=== PATIENT | male | born 1990 | race Hispanic/Latino ===

== ENCOUNTER 2017-05-20 09:33 | Inpatient (IN) | payer BC ==
[2017-05-20] MEDS ORDERED: Sodium Chloride 0.9% 1,000 ML IV STA ×3 (11:18→15:38)
[2017-05-20 11:42] LABS: ALB/GLOB RATIO 1.4 (1.1-1.8); ALBUMIN 5.2 g/dL (3.0-4.8); ALT/SGPT 38 U/L (7-56); AMYLASE 65 U/L (35-125); AST/SGOT 26 U/L (15-59); BLOOD UREA NITROGEN 22 mg/dL (7-21); CALCIUM 10.2 mg/dL (8.4-10.5); GFR AFRICAN-AMERICAN > 60; GFR NON-AFRICAN AMERICAN > 60; HEMOGLOBIN 16.7 gm/dL (14.0-18.0); LIPASE 66 U/L (23-300); MEAN CELL VOLUME 87.2 fL (80.0-105.0); MEAN CORPUSCULAR HEMOGLOBIN 30.5 pg (25.0-35.0); PLATELET COUNT 202 10^3/uL (120.0-450.0); RBC 5.47 10^6/uL (3.5-6.1); RED CELL DISTRIBUTION WIDTH 12.5 % (11.5-14.5); WHITE BLOOD COUNT 14.6 10^3/ul (4.5-11.0)
[2017-05-20 11:42] LABS: PH,URINE 6.5 (4.7-8.0); URINE BILIRUBIN NEGATIVE (NEGATIVE); URINE BLOOD NEGATIVE (NEGATIVE); URINE GLUCOSE (UA) NEGATIVE (NEGATIVE); URINE LEUKOCYTE ESTERASE TRACE Leu/uL (NEGATIVE); URINE NITRATE NEGATIVE (NEGATIVE); URINE PROTEIN 30 mg/dL (<30 mg/dL); URINE UROBILINOGEN 0.2 E.U./dL (<1 E.U./dL)
[2017-05-20 11:47] LABS: INR 1.07 (0.93-1.08); PARTIAL THROMBOPLASTIN TIME 26.2 Seconds (23.7-30.8); PROTHROMBIN TIME 11.6 Seconds (9.9-11.8)
[2017-05-20] MEDS ORDERED: Famotidine 20mg/50ml 20 MG/50 ML BAG IVPB STA (11:47)
[2017-05-20 11:52] LABS: URINE APPEARANCE CLEAR (CLEAR); URINE COLOR YELLOW (YELLOW)
[2017-05-20 11:55] LABS: URINE BACTERIA SMALL (NEG); URINE EPITHELIAL CELLS 0 - 2 /hpf (0-5); URINE RBC 0 - 2 /hpf (0-2)
[2017-05-20 12:19] LABS: BAND 2 % (0-2); LYMPHOCYTE 2 % (22.0-35.0); MONOCYTE 5 % (1.0-6.0); NEUTROPHIL 91 % (50.0-70.0); PLATELET ESTIMATE NORMAL (NORMAL)
--- NOTE | 2017-05-20 12:56 | ED PDOC ---
Arrival/HPI - General Chief Complaint: GI Problem Time Seen by Provider: 05/20/17 12:31 - History of Present Illness Narrative History of Present Illness (Text): 05/20/17 12:52 26yo male with 1 day duration non-bilious, non-bloody vomiting, and watery diarrhea. States he has some abd cramping with it. Denies fever or chills. States he has a hx of crohn's disease. No other complaints. Past Medical History - Provider Review Nursing Documentation Reviewed: Yes - Infectious Disease Hx of Infectious Diseases: None - Gastrointestinal Hx Crohn's Disease: Yes - Psychiatric Hx Substance Use: No - Anesthesia Hx Anesthesia: No Hx Anesthesia Reactions: No Hx Malignant Hyperthermia: No Family/Social History Family/Social History: Unknown Family HX Smoking Status: Never Smoked Hx Alcohol Use: No Hx Substance Use: No Allergies/Home Meds Allergies/Adverse Reactions: Allergies pcn Adverse Reaction (Uncoded 05/20/17 10:36) ANGIOEDEMA Home Medications: Home Meds Medication Instructions Recorded Confirmed No Known Home Med 05/20/17 05/20/17 Physical Exam - Physical Exam Narrative Physical Exam (Text): 05/20/17 12:57 - Review of Systems Constitutional: Normal. absent: Fatigue, Weight Change, Fevers Eyes: Normal ENT: denies sore throat, denies tristhmus Respiratory: Normal. absent: SOB, Cough, Sputum Cardiovascular: absent: Chest Pain, Palpitations, Syncope Gastrointestinal: Abdominal Pain, Diarrhea, Nausea, Vomiting Genitourinary: Normal. absent: Dysuria, Frequency, Hematuria Musculoskeletal: Normal. absent: Arthralgias, Back Pain, Neck Pain Skin: no rashes, no erythema Neurological: absent: Focal Weakness Endocrine: Normal Hemo/Lymphatic: Normal Psychiatric: No suicidal or homicidal ideations Physical exam Patient appears age appropriate in no distress, speaking full sentences without difficulty - Systems Exam Head: Present: Atraumatic, Normocephalic Pupils: Present: PERRL Extroacular Muscles: Present: EOMI Conjunctiva: Present: Normal Mouth: Present: Moist Mucous Membranes Neck: Present: Normal Range of Motion. No: MIDLINE TENDERNESS, Paraspinal Tenderness Respiratory/Chest: Present: Clear to Auscultation, Good Air Exchange. No: Respiratory Distress, Accessory Muscle Use, Tachypneic Cardiovascular: Present: Regular Rate and Rhythm, Normal S1, S2, Peripheal Pulses Present. No: Murmurs Abdomen: Present: Normal Bowel Sounds. No: Tenderness, Distention, Peritoneal Signs, Rebound, Guarding Back: Present: Normal Inspection. No: Midline Tenderness, Paraspinal Tenderness Upper Extremity: Present: Normal Inspection. No: Cyanosis, Edema Lower Extremity: Present: Normal Inspection. No: Edema Neurological: Present: GCS=15, Speech Normal, cranial nerves II through XII fully intact with no cerebellar abnormality, neurosensory fully intact. No focal neurological deficits. Skin: Present: Warm, Dry, Normal Color. No: Rashes Lymphatic: Present: OX3, NI, NC Psychiatric: Present: Alert, Oriented x 3, Normal Insight, Normal Concentration Vital Signs Reviewed: Yes Vital Signs Temp Pulse Resp BP Pulse Ox 05/20/17 17:06 101.7 F H 05/20/17 17:01 101.7 F H 127 H 18 100 05/20/17 16:31 108 H 18 135/65 99 05/20/17 14:50 102 H 20 129/60 100 05/20/17 13:08 98 H 18 119/75 97 05/20/17 10:31 98.7 F 108 H 20 115/74 97 Temperature: Afebrile Blood Pressure: Normal Pulse: Tachycardic Respiratory Rate: Normal Appearance: Positive for: Well-Appearing Pain Distress: None Mental Status: Positive for: Alert and Oriented X 3 Medical Decision Making ED Course and Treatment: 05/20/17 12:57 pt with a hx of crohn's, with n/v/d, no acute findings on PE labs, fluids ordered leukocytosis on labs CT ordered 05/20/17 17:02 CT with no acute findings pt states his pain is better still tachy leukocytosis fever abx and tylenol ordered pt states he [place] PM[place] [facility] [place], awaiting callback Miguel Ruiz MD Radiology read CT Abd/Pelvis IMPRESSION: Nonacute appearing abdomen/pelvis CT other than splenomegaly which appears nonspecific. No discrete mass seen related. No significant lymphadenopathy in the abdomen or pelvis. 05/20/17 17:[address] Watts, agrees with med/surg admission and Dr. Brooks (pt states this is his GI specialist) and Dr. Moncada on consult pt aware of and agrees with plan pt hemodynamically stable, alert, awake, does not appear in painful distress - Lab Interpretations Lab Results: 05/20/17 11:22 05/20/17 11:22 Lab Results 05/20/17 11:22: PT 11.6, INR 1.07, APTT 26.2 05/20/17 11:22: Sodium 144, Potassium 4.1, Chloride 101, Carbon Dioxide 27, Anion Gap 20, BUN 22 H, Creatinine 1.1, Est GFR ( Amer) > 60, Est GFR ( Non-Af Amer) > 60, Random Glucose 145 H, Calcium 10.2, Total Bilirubin 0.8, AST 26, ALT 38, Alkaline Phosphatase 64, Total Protein 8.9 H, Albumin 5.2 H, Globulin 3.7, Albumin/Globulin Ratio 1.4, Amylase 65, Lipase 66 05/20/17 11:22: WBC 14.6 H, RBC 5.47, Hgb 16.7, Hct 47.7, MCV 87.2, MCH 30.5, MCHC 35.0, RDW 12.5, Plt Count 202, MPV 10.0, Neutrophils % (Manual) 91 H, Band Neutrophils % 2, Lymphocytes % (Manual) 2 L, Monocytes % (Manual) 5, Platelet Evaluation Normal 05/20/17 11:19: Urine Color Yellow, Urine Appearance Clear, Urine pH 6.5, Ur Specific [place] 1.015, Urine Protein 30 H, Urine Glucose (UA) Negative, Urine Ketones Negative, Urine Blood Negative, Urine Nitrate Negative, Urine Bilirubin Negative, Urine Urobilinogen 0.2, Ur Leukocyte Esterase Trace H, Urine RBC 0 - 2 , Urine WBC 2 - 5, Ur Epithelial Cells 0 - 2, Urine Bacteria Small - RAD Interpretation Radiology Orders: 05/20/17 12:31 ABD & PELVIS IV CONTRAST ONLY [CT] Stat - Medication Orders Current Medication Orders: Ciprofloxacin (Cipro 400mg/200ml Dsw) 400 mg in 200 mls @ 133.333 mls/hr IVPB STAT STA PRN Reason: Protocol Stop: 05/20/17 18:30 Metronidazole (Flagyl) 500 mg in 100 mls @ 100 mls/hr IVPB STAT STA PRN Reason: Protocol Stop: 05/20/17 18:00 Last Admin: 05/20/17 17:11 Dose: 100 mls/hr Discontinued Medications Acetaminophen (Tylenol 325mg Tab) 975 mg PO STAT STA Stop: 05/20/17 17:02 Last Admin: 05/20/17 17:06 Dose: 975 mg Sodium Chloride (Sodium Chloride 0.9%) 1,000 mls @ 999 mls/hr IV .Q1H1M STA Stop: 05/20/17 12:18 Last Admin: 05/20/17 11:21 Dose: 999 mls/hr Famotidine (Pepcid 20mg/50ml Premix) 20 mg in 50 mls @ 100 mls/hr IVPB STAT STA Stop: 05/20/17 12:16 Last Admin: 05/20/17 11:52 Dose: 100 mls/hr Sodium Chloride (Sodium Chloride 0.9%) 1,000 mls @ 999 mls/hr IV .Q1H1M STA Stop: 05/20/17 15:27 Last Admin: 05/20/17 14:41 Dose: 999 mls/hr Sodium Chloride (Sodium Chloride 0.9%) 1,000 mls @ 999 mls/hr IV .Q1H1M STA Stop: 05/20/17 16:38 Last Admin: 05/20/17 15:47 Dose: 999 mls/hr Iohexol (Omnipaque 350 100 Ml) Confirm Administered Dose 350 mg .ROUTE .STK-MED ONE Stop: 05/20/17 13:45 Ketorolac Tromethamine (Toradol) 15 mg IVP STAT STA Stop: 05/20/17 11:48 Last Admin: 05/20/17 11:52 Dose: 15 mg Re-Assess: MAR Pain Assessment Document 05/20/17 12:52 GMD (Rec: 05/20/17 14:00 [place] [facility] [id number] Pain Reassessment Is this a pain reassessment? Yes Sleep Is patient sleeping during reassessment? No Presence of Pain Presence of Pain No Morphine Sulfate (Morphine) 4 mg IVP STAT STA Stop: 05/20/17 15:39 Last Admin: 05/20/17 15:47 Dose: 4 mg Ondansetron HCl (Zofran Inj) 4 mg IVP STAT STA Stop: 05/20/17 11:20 Last Admin: 05/20/17 11:33 Dose: 4 mg Ondansetron HCl (Zofran Inj) 4 mg IVP STAT STA Stop: 05/20/17 14:19 Last Admin: 05/20/17 14:24 Dose: 4 mg Disposition/Present on Arrival - Present on Arrival Any Indicators Present on Arrival: No History of DVT/PE: No History of Uncontrolled Diabetes: No Urinary Catheter: No History of Decub. Ulcer: No History Surgical Site Infection Following: None - Disposition Have Diagnosis and Disposition been Completed?: Yes Diagnosis: Colitis Disposition: HOSPITALIZED Disposition Time: 17:18 Patient Plan: Admission Condition: FAIR Referrals: PCP,NO [Primary Care Provider] - Follow up with primary Forms: [employer] (Turkish)
[2017-05-20] MEDS ORDERED: Iohexol 350 MG/100 ML VIAL ONE (13:44)
--- NOTE | 2017-05-20 14:59 | CT ---
PROCEDURE: CT Abdomen and Pelvis with contrast HISTORY: abd pain COMPARISON: None. TECHNIQUE: Contrast dose: Omnipaque 350, 100 cc. Radiation dose: Total exam DLP = 1039 mGy-cm. This CT exam was performed using one or more of the following dose reduction techniques: Automated exposure control, adjustment of the mA and/or kV according to patient size, and/or use of iterative reconstruction technique. FINDINGS: LOWER THORAX: Unremarkable. LIVER: Unremarkable. No gross lesion or ductal dilatation. GALLBLADDER AND BILE DUCTS: Unremarkable. PANCREAS: Unremarkable. No gross lesion or ductal dilatation. SPLEEN: Mildly enlarged to 14 0.6 cm without discrete mass appreciable. ADRENALS: Unremarkable. No mass. KIDNEYS AND URETERS: Unremarkable. No hydronephrosis. No solid mass. VASCULATURE: Unremarkable. No aortic aneurysm. BOWEL: Fluid mildly distends the stomach. Unremarkable without oral contrast. No obstruction. No gross mural thickening. APPENDIX: Normal appendix. PERITONEUM: Unremarkable. No free fluid. No free air. LYMPH NODES: Unremarkable. No enlarged lymph nodes. BLADDER: Unremarkable. REPRODUCTIVE: Unremarkable. BONES: No acute fracture. OTHER FINDINGS: None. IMPRESSION: Nonacute appearing abdomen/pelvis CT other than splenomegaly which appears nonspecific. No discrete mass seen related. No significant lymphadenopathy in the abdomen or pelvis.
[2017-05-20] MEDS ORDERED: Morphine 4 mg/ml ISec IVP STA (15:38)
[2017-05-20] MEDS ORDERED: Ciprofloxacin 400mg/200ml D5W 400 MG/200 ML BAG IVPB STA (17:01)
[2017-05-20] MEDS ORDERED: metroNIDAZOLE IV 500 mg/100 ml 500 MG/100 ML BAG IVPB STA (17:01)
[2017-05-20] MEDS ORDERED: Sodium Chloride 0.45% 1,000 ML IV SCH (19:30)
[2017-05-20 20:09] VITALS: BMI 32.8
[2017-05-20] MEDS: Morphine 2 mg/ml ISec IVP PRN (21:12)
[2017-05-20] MEDS: metroNIDAZOLE IV 500 mg/100 ml 500 MG/100 ML BAG IVPB SCH (21:13)
[2017-05-20] MEDS ORDERED: Ciprofloxacin 400mg/200ml D5W 400 MG/200 ML BAG IVPB SCH (22:00)
[2017-05-21] MEDS: Aztreonam 1 Gm in NS 100mL 100 ML IVPB SCH ×4 (00:25→23:06)
[2017-05-21] MEDS: Vancomycin 1gm in NS 250ml 1 GM/250 ML BAG IVPB SCH ×3 (00:26→23:25)
--- NOTE | 2017-05-21 03:32 | HP ---
HISTORY OF PRESENT ILLNESS: I saw Hugh in his room today. 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 He is a 26-year-old man who comes in a with a day history of abdominal pain, nonbloody vomiting, watery diarrhea, abdominal cramping, doubt fever or chills. He has history of Crohn's disease and he came to the emergency room. PAST MEDICAL HISTORY: History of Crohn's disease. FAMILY HISTORY: Unknown family history. SOCIAL HISTORY: Never smoked. Occasional alcohol. No substance abuse. He works as [employer] in [employer]. ALLERGIES: HE HAS ALLERGIES TO PENICILLIN. MEDICATIONS: He takes no medications at home. REVIEW OF SYSTEMS: No acute vision changes, hearing changes, no sore throat, no shortness of breath, no coughing of sputum. No chest pain or palpitations. Not dizzy. He has abdominal pain. He has diarrhea. He has nausea and vomiting. He GI ascencio. No problems urinating. No back pain or muscle pains or arm pains. No skin rashes, erythema. No neurological focal weakness or numbness or tingling. No anxiety or depression. No suicidal or homicidal thoughts or behavior. PHYSICAL EXAMINATION VITAL SIGNS: He has 101.7 temp, 127 pulse, 18 respiratory rate, 135/65 blood pressure, and 99% O2 sat with oxygen. HEENT: Head is atraumatic and normocephalic. Extraocular muscles are intact. Pupils are equal, reactive to light and accommodation. Throat is dry. NECK: Supple. HEART: Regular rate. LUNGS: Decreased breath sounds. Clear to auscultation. ABDOMEN: Decreased bowel sounds. Mildly distended. Mild discomfort. No guarding or rebound. No CVA tenderness. EXTREMITIES: Have no edema. NEUROLOGIC: GCS is 15. Cranial nerves II through XII grossly intact. Speech is normal. Full range of motion of all 4 extremities. Skin is warm and dry. Alert and oriented x3. Nonpalpable lymph adenopathy appreciated. Thyroid midline. He is well appearing, comfortable. He is having severe abdominal pain with history of Crohn's disease with an elevated white count. LABORATORY DATA: He has a urine that shows 30 protein, trace leukocytes, small bacteria. He has 144 sodium, potassium 4.1, BUN 22, creatinine 1.1, GFR is greater than 60, sugars 145 I am not sure why, calcium is 10.2, total bili is 0.8. AST is 26, ALT is 38, alk phos 64, total protein 8.9, albumin is 5.2, globulin amylase is 65, lipase is 66, INR is 1.17. White count is elevated at 14.6, hemoglobin 16.7, hematocrit 47.7 and platelets of 202. CAT scan of the abdomen and pelvis showed [id number] abdomen other than splenomegaly, nonspecific, no discrete mass, no lymphadenopathy. He is going to be here n.p.o., IV fluids, IV Cipro, IV Flagyl, morphine for pain, Pepcid IV, Zofran for his nausea, vomiting, n.p.o. except ice chips. He had GI and infectious disease consulted. I will put him in as Crohn's colitis, leukocytosis, abdominal pain, we will see how he does. We will also going to watch his blood sugar which was elevated. José Watts DO MTDD
[2017-05-21] MEDS: metroNIDAZOLE IV 500 mg/100 ml 500 MG/100 ML BAG IVPB SCH ×3 (05:20→21:59)
[2017-05-21 07:39] LABS: HEMOGLOBIN 13.5 gm/dL (14.0-18.0); MEAN CELL VOLUME 87.6 fL (80.0-105.0); MEAN CORPUSCULAR HEMOGLOBIN 30.4 pg (25.0-35.0); MEAN CORPUSCULAR HGB CONC 34.7 g/dl (31.0-37.0); MEAN PLATELET VOLUME 9.7 fl (7.0-11.0); RBC 4.44 10^6/uL (3.5-6.1); RED CELL DISTRIBUTION WIDTH 12.6 % (11.5-14.5); WHITE BLOOD COUNT 6.2 10^3/ul (4.5-11.0)
[2017-05-21 07:55] LABS: ALB/GLOB RATIO 1.4 (1.1-1.8); ALBUMIN 3.6 g/dL (3.0-4.8); ALT/SGPT 38 U/L (7-56); AST/SGOT 27 U/L (15-59); BLOOD UREA NITROGEN 12 mg/dL (7-21); CALCIUM 8.2 mg/dL (8.4-10.5); GFR AFRICAN-AMERICAN > 60; GFR NON-AFRICAN AMERICAN > 60
--- NOTE | 2017-05-21 08:56 | PN ---
SUBJECTIVE: He slept fairly well last night. He did wake up with a headache this morning. He feels 30% better than when he came in. He is here with abdominal pain, elevated white count. He presently has a headache and has history of Crohn's disease. He has consult with GI and infectious disease. He is currently on Azactam IV, Flagyl IV, Morphine IV for pain, Pepcid IV, IV fluids, vancomycin IV and Zofran IV. He Tylenol. I will add Tylenol for him as he needs it for headache. He is n.p.o., except ice chips. The belly pain is still there, but maybe not as bad. PHYSICAL EXAMINATION VITAL SIGNS: He has a temperature of 101.7 all night long, pulse is up to 127, 135/65 blood pressure, 18 respiratory rate, and 100% O2 sat on room air. HEENT: Head is atraumatic and normocephalic. Throat is moist. NECK: Supple. HEART: Regular rate. LUNGS: Decreased breath sounds. ABDOMEN: Mildly distended better than yesterday, less guarding, no rebound, mildly discomfortable. The left side is better, the right side is still swollen. EXTREMITIES: Have no edema. LABORATORY DATA: He has labs from yesterday, but no labs from this morning back. He did have 14.6 white count when he came and his BUN was 22. I am waiting for labs come back this morning, waiting for GI to see him. He does look a little uncomfortable the other day with the temperature. He is on three IV antibiotics. Hopefully, he will improve. Waiting for reports from GI and infectious disease to plus his labs this morning. We will watch him very closely. He is not ready to leave it. He still will be n.p.o. José Watts DO MTDD
--- NOTE | 2017-05-21 09:27 | CP.PCM.CON ---
<Alley Sampson - Last Filed: 05/21/17 12:40> History of Present Illness - History of Present Illness History of Present Illness: PGY-[address] Alfred Consult: 26 M with Hx Crohn's Disease c/o 1 day duration of non-billous, non-bloody vomiting with watery diarrhea associated with abdominal cramps. On Sunday night around 10pm, pt suddenly developed frequent nausea/vomiting/ diarrhea episodes @ 15-30 mins. It was associated with LLQ pain, 7/10 in pain scale, which comes and go. Pt could not tolerate any PO. Pt denies known sick contact. He recently traveled to [facility] in [place] but denied swimming or drinking water from the stream. Ate sushi 3 weeks ago. No change in diet/food/diet habit/swimming. He drinks from refrigerator's filtered water. At baseline, pt's last crohn's flair was 3 years ago (associated with abdominal pain lasting < 1 day) Upon ED arrival, he had fever, tachycardia at 108. Later 101.7 rectal. leukocytosis 14.6. 91% neutrophil. No lactate recorded Amylase, lipase normal u/a showed 0-2 epithelial cell, 2-5 WBC, trace leuk est, negative nitrate He received 3L NS, cipro and flagyl x 1 CT abdomen/pelvis showed splenomegaly which appears nonspecific. No discrete mass seen related. No significant lymphadenopathy in the abdomen or pelvis. 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 Brooks Past Patient History - Infectious Disease Hx of Infectious Diseases: None - Past Social History Smoking Status: Never Smoked - MUSCULOSKELETAL/RHEUMATOLOGICAL Hx Falls: No - GASTROINTESTINAL Hx Crohn's Disease: Yes - PSYCHIATRIC Hx Substance Use: No - SURGICAL HISTORY Hx Surgeries: No - ANESTHESIA Hx Anesthesia: No Hx Anesthesia Reactions: No Hx Malignant Hyperthermia: No Meds Allergies/Adverse Reactions: Allergies Allergy/AdvReac Type Severity Reaction Status Date / Time pcn AdvReac ANGIOEDEMA Uncoded 05/20/17 10:36 - Medications Medications: Current Medications Acetaminophen (Tylenol 325mg Tab) 650 mg PO Q6H PRN PRN Reason: Headache Famotidine (Pepcid) 20 mg IVP DAILY ON LICENSE OF [facility] Sodium Chloride (Sodium Chloride 0.45%) 1,000 mls @ 60 mls/hr IV .[id number] ON LICENSE OF [facility] Last Admin: 05/20/17 21:14 Dose: 60 mls/hr Metronidazole (Flagyl) 500 mg in 100 mls @ 100 mls/hr IVPB Q8 MARI PRN Reason: Protocol Last Admin: 05/21/17 05:20 Dose: 100 mls/hr Aztreonam (Azactam 1 Gm) 100 mls @ 100 mls/hr IVPB Q8 MARI PRN Reason: Protocol Stop: 05/27/17 23:46 Last Admin: 05/21/17 05:21 Dose: 100 mls/hr Vancomycin HCl (Vancomycin 1gm) 1 gm in 250 mls @ 167 mls/hr IVPB Q12H MARI PRN Reason: Protocol Last Admin: 05/21/17 00:26 Dose: 167 mls/hr Morphine Sulfate (Morphine) 2 mg IVP Q4H PRN PRN Reason: Pain, moderate (4-7) Last Admin: 05/20/17 21:12 Dose: 2 mg Ondansetron HCl (Zofran Inj) 4 mg IVP Q6H PRN PRN Reason: Nausea/Vomiting Physical Exam - Constitutional Appears: No Acute Distress - Head Exam Head Exam: ATRAUMATIC, NORMAL INSPECTION, NORMOCEPHALIC - Eye Exam Eye Exam: EOMI, Normal appearance, PERRL. absent: Scleral icterus Pupil Exam: NORMAL ACCOMODATION - ENT Exam ENT Exam: Mucous Membranes Moist - Neck Exam Neck exam: Negative for: Lymphadenopathy - Respiratory Exam Respiratory Exam: Clear to Auscultation Bilateral, NORMAL BREATHING PATTERN. absent: Decreased Breath Sounds, Rales, Rhonchi, Wheezes - Cardiovascular Exam Cardiovascular Exam: REGULAR RHYTHM, +S1, +S2. absent: Systolic Murmur - GI/Abdominal Exam GI & Abdominal Exam: Normal Bowel Sounds, Soft, Tenderness (LLQ.). absent: Distended, Firm, Guarding Additional comments: Negative graves, mcburney, rovsing, psoas sign - Extremities Exam Extremities exam: Positive for: normal capillary refill. Negative for: calf tenderness, pedal edema - Back Exam Back exam: absent: CVA tenderness (L), CVA tenderness (R), muscle spasm, paraspinal tenderness - Neurological Exam Neurological exam: Alert, Oriented x3 - Skin Skin Exam: Diaphoretic, Warm Results - Vital Signs Recent Vital Signs: Last Vital Signs Temp 99.7 F H 05/21/17 08:09 Pulse 100 H 05/21/17 08:09 Resp 18 05/21/17 08:09 BP 121/71 05/21/17 08:09 Pulse Ox 96 05/21/17 08:09 - Labs Result Diagrams: 05/21/17 07:00 05/21/17 07:00 Labs: Laboratory Results - last 24 hr 05/21/17 05/21/17 07:00 07:00 WBC 6.2 D RBC 4.44 Hgb 13.5 L Hct 38.9 L MCV 87.6 MCH 30.4 MCHC 34.7 RDW 12.6 Plt Count 134 MPV 9.7 Sodium 138 Potassium 3.2 L Chloride 105 Carbon Dioxide 24 Anion Gap 12 BUN 12 Creatinine 0.9 Est GFR ( Amer) > 60 Est GFR (Non-Af Amer) > 60 Random Glucose 106 Calcium 8.2 L Total Bilirubin 1.0 AST 27 ALT 38 Alkaline Phosphatase 44 Total Protein 6.3 Albumin 3.6 Globulin 2.6 Albumin/Globulin Ratio 1.4 Assessment & Plan - Assessment and Plan (Free Text) Plan: 26 years old male, with Hx Crohn, 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 Gastroenteritis, likely bacterial Crohn's flair R/O Clostridium Difficile Colitis - Pending Blood culture, Stool culture, Fecal leukocyte, C.diff antigen and toxin - Allergic to penicillin - Continue Vanco (day 1), Flagyl (day 1), Aztreonam (day 1) - NPO, morphine PRN - s/p 3L NS - Now D4/halfNS+20K @ 60 - Continue monitor fever s/r/d/w Dr. Alfred - Date & Time Date: 05/21/17 Time: 10:54 <Rory Alfred - Last Filed: 05/21/17 13:50> Meds - Medications Medications: Current Medications Acetaminophen (Tylenol 325mg Tab) 650 mg PO Q6H PRN PRN Reason: Headache Last Admin: 05/21/17 13:20 Dose: 650 mg Famotidine (Pepcid) 20 mg IVP DAILY ON LICENSE OF [facility] Last Admin: 05/21/17 10:31 Dose: 20 mg Metronidazole (Flagyl) 500 mg in 100 mls @ 100 mls/hr IVPB Q8 MARI PRN Reason: Protocol Last Admin: 05/21/17 13:14 Dose: 100 mls/hr Aztreonam (Azactam 1 Gm) 100 mls @ 100 mls/hr IVPB Q8 MARI PRN Reason: Protocol Stop: 05/27/17 23:46 Last Admin: 05/21/17 13:14 Dose: 100 mls/hr Vancomycin HCl (Vancomycin 1gm) 1 gm in 250 mls @ 167 mls/hr IVPB Q12H MARI PRN Reason: Protocol Last Admin: 05/21/17 11:00 Dose: 167 mls/hr Potassium Chloride 20 meq/ (Dextrose/Sodium Chloride) 1,010 mls @ 50 mls/hr IV .[id number] ON LICENSE OF [facility] Last Admin: 05/21/17 13:15 Dose: 50 mls/hr Morphine Sulfate (Morphine) 2 mg IVP Q4H PRN PRN Reason: Pain, moderate (4-7) Last Admin: 05/20/17 21:12 Dose: 2 mg Ondansetron HCl (Zofran Inj) 4 mg IVP Q6H PRN PRN Reason: Nausea/Vomiting Results - Vital Signs Recent Vital Signs: Last Vital Signs Temp 99.7 F H 05/21/17 08:09 Pulse 100 H 05/21/17 08:09 Resp 18 05/21/17 08:09 BP 121/71 05/21/17 08:09 Pulse Ox 96 05/21/17 08:09 - Labs Result Diagrams: 05/21/17 07:00 05/21/17 07:00 Labs: Laboratory Results - last 24 hr 05/21/17 05/21/17 07:00 07:00 WBC 6.2 D RBC 4.44 Hgb 13.5 L Hct 38.9 L MCV 87.6 MCH 30.4 MCHC 34.7 RDW 12.6 Plt Count 134 MPV 9.7 Sodium 138 Potassium 3.2 L Chloride 105 Carbon Dioxide 24 Anion Gap 12 BUN 12 Creatinine 0.9 Est GFR ( Amer) > 60 Est GFR (Non-Af Amer) > 60 Random Glucose 106 Calcium 8.2 L Total Bilirubin 1.0 AST 27 ALT 38 Alkaline Phosphatase 44 Total Protein 6.3 Albumin 3.6 Globulin 2.6 Albumin/Globulin Ratio 1.4 Assessment & Plan - Assessment and Plan (Free Text) Plan: Attending attestation: Patient seen and examined, discussed with senior medical writer. I have reviewed the patient's history of present illness, past medical, social and personal histories, as well as medications. Patient is allergic to penicillin. I agree with the above findings, assessment and plan. In addition, will follow up with GI and see what their evaluation and recommendations are, for this patient with Systemic Inflammatory Response Syndrome, consider due to gastroenteritis R/O acute exacerbation of Crohn's disease R/O C. diff. infection. Started on Vancomycin, Azactam and Flagyl and follow up stool studies, stool cx, stool for C. diff. and blood cx. Trend fever curve.
[2017-05-21] MEDS: Potassium Chloride 20 MEQ in Dextrose 5%/0.45% NS 1,000 ML IV SCH (13:15)
--- NOTE | 2017-05-21 17:10 | CON ---
DATE: 05/21/2017 CONSULTANTS: None. HISTORY OF PRESENT ILLNESS: The patient is a 26-year-old white male, admitted with a 1-day history of fever, nausea and vomiting, headache, abdominal pain, myalgias, and profuse diarrhea. He denied any hematemesis or rectal bleeding. He denied eating tainted food. Also, denied any other family members with similar illness. 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 The patient has had no recent GI issues except for this. At the bedside this morning, the patient indicates the abdominal pain is roughly a 6/10, whereas yesterday the pain was roughly 10/10. The diarrhea was extremely refractory and was high volume, non-bloody. PHYSICAL EXAMINATION VITAL SIGNS: I reviewed this patient's vital signs. HEENT: Dry mouth. LUNGS: Clear to auscultation. HEART: Regular rhythm. Mildly tachy. ABDOMEN: Soft, mildly protuberant. Irregular bowel sounds. Mild tenderness in the right upper quadrant and right paraumbilical. He is also moderately tender in the periumbilical area as well as the left paraumbilical and the left lower quadrant. LABORATORY DATA: Review of laboratory data indicates white count of 14.6 with an H and H of 16 and 47. INR is within normal limits. Evaluation of chemistry indicates a glucose of 145 with a BUN and creatinine of 22 and 1.1, otherwise noncontributory. Note that his AST/ALT ratio was 26/38. Reviewed interpretation of the abdominal and pelvic CT scan which was essentially noncontributory. Review of images of the liver indicates the liver is relatively normal. There is mild increase in the size of the spleen. There are some fluid-filled bowel loops, but thick full bowel loops are not noted. OVERALL ASSESSMENT: This is a 26-year-old white male with no recent significant gastrointestinal history, admitted with new complaints of acute-onset abdominal pain, nausea, vomiting, diarrhea, myalgias, and high fever. Scenario suggestive of a gastroenteritis (viral?). The patient was placed yesterday on aztreonam and metronidazole, also given analgesics. He was also given a dose of Pepcid on a daily basis. Dr. Alfred also ordered vancomycin last night. Zofran was ordered on a four q.6 hour basis. The patient should be n.p.o. at the current time point at least until he is able to handle something orally. He did request some amount of ice chips to moisten his lips. The patient will be followed up Dr. Watts as well as ID. Adam Brooks DO, PhD MTDJohn
[2017-05-21] MEDS: Morphine 2 mg/ml ISec IVP PRN ×2 (18:11→23:05)
[2017-05-22] MEDS: metroNIDAZOLE IV 500 mg/100 ml 500 MG/100 ML BAG IVPB SCH ×3 (05:38→21:43)
[2017-05-22] MEDS: Morphine 2 mg/ml ISec IVP PRN ×4 (06:31→22:52)
[2017-05-22] MEDS: Aztreonam 1 Gm in NS 100mL 100 ML IVPB SCH ×3 (06:41→21:42)
--- NOTE | 2017-05-22 07:11 | PN ---
SUBJECTIVE: I examined the patient this morning. 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 Last seen in the office in 2008 with complaints of abdominal pain, diarrhea, nausea and vomiting. The patient was admitted acutely after several hours of severe abdominal pain, nausea, vomiting and diarrhea, myalgia, headache, which occurred prior to admission. The patient had been asymptomatic from a GI point of view since last seen in the office in 2008. Since initiation of antibiotics including antiemetics, analgesics and IV fluids, the patient has improved for the past 24 hours. Initially, the pain was 10/10 on arrival to the ER when evaluated. When evaluated yesterday morning, pain was in the range of between 6 and 8. This morning the discomfort has decreased to a level between 4 and 6. He only had one episode of diarrhea last night. There is no nausea and vomiting. There is no hematemesis or rectal bleeding. Temp was related at roughly 99. He still has severe headache, also myalgias. PHYSICAL EXAMINATION: VITAL SIGNS: I reviewed this patient's vital signs. HEENT: Significant for dry mouth. LUNGS: Clear to auscultation. HEART: Regular rhythm, but mildly tachy. ABDOMEN: Significant for no tenderness in the right upper and right lower quadrants. He is still mildly tender in the supraumbilical area, periumbilical. Epigastric mildly tender as well. He is still moderately tender and exhibits fullness in the area of the left periumbilical and left lower quadrant. LABORATORY DATA: Pending for this morning. Note that there was a decrease in his white count from 14 to 6, also decrease in hemoglobin probably on a dilutional basis. Chemistry significant for some mild hypokalemia which I presume has been corrected. I reviewed the progress note of Dr. Watts as well as consultation of Dr. Alfred. ASSESSMENT: This is a 26-year-old white male with acute onset of abdominal pain, nausea, vomiting, diarrhea, myalgias, and severe headache. Note that in the current clinical setting the patient is still exhibiting myalgias as well as severe headache this is more suggestive of a viral type of gastroenteritis. The patient is improving, however, on the current therapeutic regimen, suggest continue as per Dr. Watts and Dr. Alfred. I do not feel there is any need for endoscopic evaluation at this time point; however, at some later date, this could be considered, but right now, again, we would continue on the current therapeutic regimen. In view of the negative CT findings and absence of overall GI clinical activity for the last 8 years, we doubt this is IBD related. Note that the patient had been on Pentasa previously for an extensive time point and did very well, subsequently phased this medication out, has not needed it since last evaluated in the office. Since the patient is making progress, we advance diet with very small volumes of clears this morning. I advised him to use discretion and if symptoms resume that is nausea, vomiting, abdominal pain with severe diarrhea at even small amount of clears, I think he is not ready to advance. Adam Brooks DO, PhD MTDD
[2017-05-22 08:04] LABS: HEMOGLOBIN 13.4 gm/dL (14.0-18.0); MEAN CELL VOLUME 87.1 fL (80.0-105.0); MEAN CORPUSCULAR HEMOGLOBIN 29.3 pg (25.0-35.0); MEAN CORPUSCULAR HGB CONC 33.7 g/dl (31.0-37.0); MEAN PLATELET VOLUME 9.5 fl (7.0-11.0); RBC 4.57 10^6/uL (3.5-6.1); RED CELL DISTRIBUTION WIDTH 12.5 % (11.5-14.5); WHITE BLOOD COUNT 5.7 10^3/ul (4.5-11.0)
--- NOTE | 2017-05-22 08:22 | CP.PCM.PN ---
<Alley Sampson - Last Filed: 05/22/17 13:10> Subjective - Date & Time of Evaluation Date of Evaluation: 05/22/17 Time of Evaluation: 08:21 - Subjective Subjective: PGY-[address] Alfred T max 101.7 (05/20/17 10 pm) Yesterday 99.7 Remains on liquid diet Objective - Vital Signs/Intake and Output Vital Signs (last 24 hours): Temp Pulse Resp BP Pulse Ox 99.7 F H 100 H 18 121/71 96 05/21/17 08:09 05/21/17 08:09 05/21/17 08:09 05/21/17 08:09 05/21/17 08:09 Intake and Output: 05/22/17 05/22/17 06:59 18:59 Intake Total 600 Balance 600 - Medications Medications: Current Medications Acetaminophen (Tylenol 325mg Tab) 650 mg PO Q6H PRN PRN Reason: Headache Last Admin: 05/21/17 13:20 Dose: 650 mg Famotidine (Pepcid) 20 mg IVP DAILY [facility] Last Admin: 05/21/17 10:31 Dose: 20 mg Metronidazole (Flagyl) 500 mg in 100 mls @ 100 mls/hr IVPB Q8 MARI PRN Reason: Protocol Last Admin: 05/22/17 05:38 Dose: 100 mls/hr Aztreonam (Azactam 1 Gm) 100 mls @ 100 mls/hr IVPB Q8 MARI PRN Reason: Protocol Stop: 05/27/17 23:46 Last Admin: 05/22/17 06:41 Dose: 100 mls/hr Vancomycin HCl (Vancomycin 1gm) 1 gm in 250 mls @ 167 mls/hr IVPB Q12H MARI PRN Reason: Protocol Last Admin: 05/21/17 23:25 Dose: 167 mls/hr Potassium Chloride 20 meq/ (Dextrose/Sodium Chloride) 1,010 mls @ 50 mls/hr IV .[id number] MARI Last Admin: 05/21/17 13:15 Dose: 50 mls/hr Morphine Sulfate (Morphine) 2 mg IVP Q4H PRN PRN Reason: Pain, moderate (4-7) Last Admin: 05/22/17 06:31 Dose: 2 mg Ondansetron HCl (Zofran Inj) 4 mg IVP Q6H PRN PRN Reason: Nausea/Vomiting - Labs Labs: 05/22/17 07:30 05/21/17 07:00 PT 11.6 Seconds (9.9-11.8) 05/20/17 11:22 INR 1.07 (0.93-1.08) 05/20/17 11:22 APTT 26.2 Seconds (23.7-30.8) 05/20/17 11:22 Assessment and Plan - Assessment and Plan (Free Text) Plan: Hugh Leung, (375-2), 26M, with Hx Crohn, 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 Likely Gastroenteritis Unlikely acute exacerbation of Crohn's R/O Clostridium Difficile Colitis - Trend fever curve - Pending Blood culture - Pending Stool culture - no BM - Pending Fecal leukocyte - no BM - Pending C.diff antigen and toxin - no BM - Allergic to penicillin - Continue Vanco (day 2), Flagyl (day 2), Aztreonam (day 2) - Morphine PRN - Upgrade to liquid diet - s/p 3L NS - Now D4/halfNS+20K @ 60 - GI: Doube IBD related. Likely viral due to associated Sx as myalgia, JOHNSON. No need for EGD for now. Not ready to advance diet. Remain on liquid diet. - If clinically continue to improves, may d/c antibiotics tomorrow s/r/d/w Dr. Alfred <Rory Alfred S - Last Filed: 05/22/17 13:29> Objective - Vital Signs/Intake and Output Vital Signs (last 24 hours): Temp Pulse Resp BP Pulse Ox 99.3 F 66 20 123/82 98 05/22/17 06:00 05/22/17 06:00 05/22/17 06:00 05/22/17 06:00 05/22/17 06:00 Intake and Output: 05/22/17 05/22/17 06:59 18:59 Intake Total 600 Balance 600 - Medications Medications: Current Medications Acetaminophen (Tylenol 325mg Tab) 650 mg PO Q6H PRN PRN Reason: Headache Last Admin: 05/21/17 13:20 Dose: 650 mg Famotidine (Pepcid) 20 mg IVP DAILY [facility] Last Admin: 05/22/17 09:58 Dose: 20 mg Metronidazole (Flagyl) 500 mg in 100 mls @ 100 mls/hr IVPB Q8 MARI PRN Reason: Protocol Last Admin: 05/22/17 05:38 Dose: 100 mls/hr Aztreonam (Azactam 1 Gm) 100 mls @ 100 mls/hr IVPB Q8 MARI PRN Reason: Protocol Stop: 05/27/17 23:46 Last Admin: 05/22/17 06:41 Dose: 100 mls/hr Vancomycin HCl (Vancomycin 1gm) 1 gm in 250 mls @ 167 mls/hr IVPB Q12H MARI PRN Reason: Protocol Last Admin: 05/22/17 12:49 Dose: 167 mls/hr Potassium Chloride 20 meq/ (Dextrose/Sodium Chloride) 1,010 mls @ 50 mls/hr IV .[id number] [facility] Last Admin: 05/21/17 13:15 Dose: 50 mls/hr Morphine Sulfate (Morphine) 2 mg IVP Q4H PRN PRN Reason: Pain, moderate (4-7) Last Admin: 05/22/17 12:49 Dose: 2 mg Ondansetron HCl (Zofran Inj) 4 mg IVP Q6H PRN PRN Reason: Nausea/Vomiting - Labs Labs: 05/22/17 07:30 05/22/17 07:30 PT 11.6 Seconds (9.9-11.8) 05/20/17 11:22 INR 1.07 (0.93-1.08) 05/20/17 11:22 APTT 26.2 Seconds (23.7-30.8) 05/20/17 11:22 Assessment and Plan - Assessment and Plan (Free Text) Plan: Infectious Diseases Attending Physician Attestation Patient seen and examined, discussed with medical translator. I agree with above findings. In addition, we will follow up final blood cx results (negative so far ) and stool studies for this patient who presented with systemic Inflammatory Response Syndrome, consider secondary to acute gastroenteritis, less likely due to acute exacerbation of inflammatory bowel disease. Will continue Vancomycin, Azactam and Flagyl for now. If work up is negative by tomorrow, or he continues to be diarrhea-free (he has not had vomiting episodes since admission), may d/c antibiotics by tomorrow.
[2017-05-22 08:30] LABS: ALB/GLOB RATIO 1.3 (1.1-1.8); ALBUMIN 3.6 g/dL (3.0-4.8); ALT/SGPT 38 U/L (7-56); AST/SGOT 30 U/L (15-59); BLOOD UREA NITROGEN 8 mg/dL (7-21); CALCIUM 8.7 mg/dL (8.4-10.5); GFR AFRICAN-AMERICAN > 60; GFR NON-AFRICAN AMERICAN > 60
[2017-05-22] MEDS ORDERED: Potassium Chloride 20 mEq ER Tab PO ONE (08:51)
--- NOTE | 2017-05-22 12:23 | PN ---
DATE: SUBJECTIVE: I saw him resting comfortably in bed. He little bit of headache and some abdominal discomfort, but not as bed as when he came. I discussed with the exchange underwriting consultant, Dr. Brooks, who feels that he was improving and we started to increase his diet with possible clears this morning. He feels this is the viral gastroenteritis that is severe. He is on Azactam, Flagyl, Morphine, Pepcid, potassium replacement, Tylenol, vancomycin, and Zofran. PHYSICAL EXAMINATION VITAL SIGNS: Temperature 99.7, it is coming down, it was 101.7; pulse 100, blood pressure 121/70, respiratory rate 18, O2 sat 96% on room air. HEENT: Head is atraumatic and normocephalic. HEART: Regular rate. LUNGS: Clear to auscultation with decreased breath sounds. ABDOMEN: Soft. Positive bowel sounds. Still with left-sided mild discomfort, but no guarding or rebound. There are bowel sounds with the decreased, but better than the other day. EXTREMITIES: No edema. LABORATORY DATA: He has a 5.7 white count, 13.4 hemoglobin, 39.8 hematocrit, with 132 platelets. Sodium 141; potassium 3.5, we will give him some potassium; BUN is 8, and creatinine 1. GFR is greater than 60. Sugar is 92 and calcium 8.7. Total bilirubin is 0.5. AST is 30, ALT is 30, alkaline phosphatase 44, total protein is 6.3, albumin 3.6, globulin 2.7, amylase is 65, lipase is 66. Urine was small. ASSESSMENT AND PLAN: We will continue with treatment and care. Increase his diet of liquids today. Also seen by Infectious Diseases internet marketing intern. Continue with IV antibiotics. Check his labs tomorrow. Get him out of bed to chair. Increase his diet. José Watts DO MTDD
[2017-05-22] MEDS: Vancomycin 1gm in NS 250ml 1 GM/250 ML BAG IVPB SCH (12:49)
[2017-05-23] MEDS: Vancomycin 1gm in NS 250ml 1 GM/250 ML BAG IVPB SCH (00:21)
[2017-05-23] MEDS: Aztreonam 1 Gm in NS 100mL 100 ML IVPB SCH (05:22)
[2017-05-23] MEDS: metroNIDAZOLE IV 500 mg/100 ml 500 MG/100 ML BAG IVPB SCH ×2 (05:23→13:40)
[2017-05-23] MEDS: Potassium Chloride 20 MEQ in Dextrose 5%/0.45% NS 1,000 ML IV SCH ×2 (05:24→22:15)
--- NOTE | 2017-05-23 08:12 | PN ---
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 The patient is currently improving on current therapeutic regimen. He has not had diarrhea yesterday; however, with advanced diet to clear liquids did experience some transient increasing pain, but only to a level roughly 3-4/10. This morning, at the bedside, the patient is improved. Minimal discomfort. Abdomen is decompressed. Afebrile. No nausea, vomiting or diarrhea. PHYSICAL EXAMINATION: VITAL SIGNS: I reviewed this patient's vital signs. HEENT: Significant for dry mouth. LUNGS: Clear to auscultation. HEART: Regular rhythm. ABDOMEN: Soft. No discomfort elicited in the right upper and right lower quadrant as well as the supraumbilical area. He had some mild discomfort in the left periumbilical and still significant fullness noted in the area of the left lower quadrant. LABORATORY DATA: I review this patient's laboratory data from yesterday. Note that he has had a decrease in his white count, again down to 5.7. Chemistry noncontributory for the current admission. ASSESSMENT: A 26-year-old white male admitted with acute onset abdominal pain, diarrhea, nausea, vomiting, myalgias and headaches. Scenario suggestive of gastroenteritis and currently improving. PLAN: Continue to monitor increase in symptoms with advanced soft diet to liquid yesterday; however, discussion at bedside and wished to advance to very small portions of soft today. I told him to try mostly liquid base diet and only very tiny amounts of soft low residue. Otherwise, we continue current therapeutic regimen. Antibiotics at discretion of ID. Can consider if discharged in next 24 hours a few days of cipro/flagyl if not contraindicated. Significant diet discretion advised. Adam Brooks DO, PhD MTDJohn
[2017-05-23 08:16] LABS: MEAN CELL VOLUME 86.6 fL (80.0-105.0); MEAN CORPUSCULAR HEMOGLOBIN 29.8 pg (25.0-35.0); MEAN CORPUSCULAR HGB CONC 34.4 g/dl (31.0-37.0); MEAN PLATELET VOLUME 9.8 fl (7.0-11.0); RBC 4.7 10^6/uL (3.5-6.1); RED CELL DISTRIBUTION WIDTH 12.4 % (11.5-14.5); WHITE BLOOD COUNT 4.1 10^3/ul (4.5-11.0)
[2017-05-23 08:29] LABS: ALB/GLOB RATIO 1.4 (1.1-1.8); ALBUMIN 3.7 g/dL (3.0-4.8); ALT/SGPT 55 U/L (7-56); AST/SGOT 37 U/L (15-59); BLOOD UREA NITROGEN 8 mg/dL (7-21); CALCIUM 8.9 mg/dL (8.4-10.5); GFR AFRICAN-AMERICAN > 60; GFR NON-AFRICAN AMERICAN > 60
--- NOTE | 2017-05-23 11:23 | PN ---
DATE: SUBJECTIVE: I saw Hugh resting comfortably in bed. He slept fairly well last night. Still with some abdominal discomfort. No gas. No bowel movement. Not a 100% yet. He is currently on IV dextrose, Flagyl IV, potassium replacement, morphine for pain, Pepcid, Tylenol and Zofran. He is off Azactam. He is feeling a bit better. PHYSICAL EXAMINATION: VITAL SIGNS: His temperature was 101, 99, now is down to 98.2, it is the best it has been since he has been here, last night it was 99.3. He had a 63 pulse, 102/65 blood pressure, 20 respiratory rate, 90% saturation on room air. HEENT: Head is atraumatic, normocephalic. Throat is moist. NECK: Supple. HEART: Regular rate. LUNGS: Decreased breath sounds, but clear. ABDOMEN: Soft. Positive bowel sounds. Still with some discomfort in the lower area. No guarding. No rebound. EXTREMITIES: No edema. Seems weaker than when he came in. We stopped his Azactam. LABORATORY DATA: He has 141 sodium, potassium was 3.5 yesterday, it was replaced; BUN is 8, creatinine is 1, GFR is greater than 60, sugar is 92, calcium is 8.7. AST is 30, ALT is 38, alkaline phosphatase is 44 that was yesterday with a 5.7 white count, 13.4 hemoglobin and 132 platelets. ASSESSMENT AND PLAN: He is being seen by Infectious Disease and GI. I understand GI increased his diet to clear this morning, we will see how he does. Infectious Disease says he has systemic inflammatory response syndrome due to intraabdominal infection, likely gastroenteritis, rule out Clostridium difficile. Hopefully, he will continue to improve his temperature finally broke. When he gets the okay from GI and Infectious Disease, I will discharge him. He will do out of bed to chair, hopefully do well with the liquids and maybe even more for lunch. Continue with IV antibiotics. Continue aggressive treatment and care on Hugh Leigh who had leukocytosis, abdominal pain, systemic inflammatory response syndrome, high blood sugar x1 and intestinal infection. José Watts DO [facility] # [id number] RIRI
--- NOTE | 2017-05-23 15:26 | CP.PCM.PN ---
Subjective - Date & Time of Evaluation Date of Evaluation: 05/23/17 Time of Evaluation: 09:25 - Subjective Subjective: Comfortable, has not had diarrhea overnight, had some abdominal pain with food intake yesterday but was mild. No fevers overnight. Objective - Vital Signs/Intake and Output Vital Signs (last 24 hours): Temp Pulse Resp BP Pulse Ox 98.2 F 63 20 102/65 98 05/22/17 16:30 05/22/17 16:30 05/22/17 16:30 05/22/17 16:30 05/22/17 16:30 Intake and Output: 05/22/17 05/23/17 18:59 06:59 Intake Total 360 Balance 360 - Medications Medications: Current Medications Acetaminophen (Tylenol 325mg Tab) 650 mg PO Q6H PRN PRN Reason: Headache Last Admin: 05/21/17 13:20 Dose: 650 mg Famotidine (Pepcid) 20 mg IVP DAILY [facility] [place] Last Admin: 05/22/17 09:58 Dose: 20 mg Metronidazole (Flagyl) 500 mg in 100 mls @ 100 mls/hr IVPB Q8 MARI PRN Reason: Protocol Last Admin: 05/23/17 05:23 Dose: 100 mls/hr Potassium Chloride 20 meq/ (Dextrose/Sodium Chloride) 1,010 mls @ 50 mls/hr IV .[id number] [facility] Last Admin: 05/23/17 05:24 Dose: Not Given Morphine Sulfate (Morphine) 2 mg IVP Q4H PRN PRN Reason: Pain, moderate (4-7) Last Admin: 05/22/17 22:52 Dose: 2 mg Ondansetron HCl (Zofran Inj) 4 mg IVP Q6H PRN PRN Reason: Nausea/Vomiting - Labs Labs: 05/22/17 07:30 05/22/17 07:30 PT 11.6 Seconds (9.9-11.8) 05/20/17 11:22 INR 1.07 (0.93-1.08) 05/20/17 11:22 APTT 26.2 Seconds (23.7-30.8) 05/20/17 11:22 - Constitutional Appears: Non-toxic, No Acute Distress - Head Exam Head Exam: NORMAL INSPECTION - Neck Exam Neck Exam: absent: Meningismus - Respiratory Exam Respiratory Exam: Decreased Breath Sounds - Cardiovascular Exam Cardiovascular Exam: +S1, +S2 - GI/Abdominal Exam GI & Abdominal Exam: Soft. absent: Tenderness Assessment and Plan - Assessment and Plan (Free Text) Plan: Assessment Probable acute astroenteritis, clinically improving, less likely exacerbation of Crohn's disease Plan Cultures have been negative, patient does not have diarrhea- will discontinue antibiotics and monitor clinically
[2017-05-23] MEDS: Morphine 2 mg/ml ISec IVP PRN ×2 (15:38→22:17)
[2017-05-24 07:35] LABS: HEMOGLOBIN 14.9 gm/dL (14.0-18.0); MEAN CELL VOLUME 86.4 fL (80.0-105.0); MEAN CORPUSCULAR HEMOGLOBIN 30.2 pg (25.0-35.0); MEAN CORPUSCULAR HGB CONC 34.9 g/dl (31.0-37.0); MEAN PLATELET VOLUME 9.6 fl (7.0-11.0); RBC 4.94 10^6/uL (3.5-6.1); RED CELL DISTRIBUTION WIDTH 12.5 % (11.5-14.5); WHITE BLOOD COUNT 4.9 10^3/ul (4.5-11.0)
[2017-05-24 07:44] LABS: ALB/GLOB RATIO 1.3 (1.1-1.8); ALT/SGPT 60 U/L (7-56); AST/SGOT 47 U/L (15-59); BLOOD UREA NITROGEN 13 mg/dL (7-21); CALCIUM 9.1 mg/dL (8.4-10.5); GFR AFRICAN-AMERICAN > 60; GFR NON-AFRICAN AMERICAN > 60
[2017-05-24 08:43] VITALS: BP 122/67; PULSE 57; RESP 18; TEMP 97.9; O2SAT 96
--- NOTE | 2017-05-24 09:50 | PN ---
DATE: 05/24/2017 SUBJECTIVE: I saw Mr. Leung this morning. 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 The patient is improved on the current therapeutic regimen over the past couple of days. He is currently afebrile. Pain is diminutive. He has had no diarrhea, rectal bleeding or hematemesis. His diet was advanced yesterday to small portions of soft and he held this well without complaints. PHYSICAL EXAMINATION: VITAL SIGNS: I reviewed this patient's vital signs. HEENT: Noncontributory. LUNGS: Clear to auscultation. HEART: Regular rhythm. ABDOMEN: Soft and nontender in the right upper and right lower quadrant. He is not tender in the supraumbilical area, but mildly tender in the epigastric. Palpation of the left periumbilical and left lower quadrant indicates some fullness, but tenderness which is in the range of may be 1 or 2/10. The fullness is still noted substantial in the area of the left lower quadrant, but much improved relative to admission. LABORATORY DATA: I reviewed this patient's laboratory data today. White count decreased to 4.1. Chemistry from yesterday noncontributory. ASSESSMENT: This is a 26-year-old white male admitted with signs and symptoms of gastroenteritis, currently improved, on current therapeutic regimen. PLAN: The patient advanced diet and has been seen by multiple consultants. Antibiotics were discontinued as of yesterday by Dr. Alfred. At this point in time, the patient does not have diarrhea, no nausea or vomiting. Extremely mild discomfort of left lower quadrant. On the basis of this, I feel the patient could probably be discharged later this morning. If Dr. Watts feels it is appropriate, possibly a few days of Cipro/Flagyl, that is, Cipro 500 mg b.i.d. and Flagyl 500 mg t.i.d. with no vigorous activity over the next 4 or 5 days. I reviewed the dietary issues with the patient Small portions of soft low residue over the next couple of days and advance diet when he is home as tolerated. No vigorous activity. I advised him not to return to work for about 4 to 5 days. He will be making an appointment to see me in the office in about a week. He expressed the desire to follow up with Dr. Watts as his PMD. Adam Brooks DO, PhD RIRI
--- NOTE | 2017-05-24 10:34 | CP.PCM.PN ---
Subjective - Date & Time of Evaluation Date of Evaluation: 05/24/17 Time of Evaluation: 10:15 - Subjective Subjective: Comfortable, not in distress, no diarrhea, no vomiting, minimal abdominal pain, tolerating liquid diet. No fevers overnight. Objective - Vital Signs/Intake and Output Vital Signs (last 24 hours): Temp Pulse Resp BP Pulse Ox 98.7 F 55 L 20 116/71 97 05/23/17 16:00 05/23/17 16:00 05/23/17 16:00 05/23/17 16:00 05/23/17 16:00 Intake and Output: 05/23/17 05/24/17 18:59 06:59 Intake Total 600 840 Balance 600 840 - Medications Medications: Current Medications Acetaminophen (Tylenol 325mg Tab) 650 mg PO Q6H PRN PRN Reason: Headache Last Admin: 05/21/17 13:20 Dose: 650 mg Famotidine (Pepcid) 20 mg IVP DAILY [facility] Last Admin: 05/23/17 09:02 Dose: 20 mg Potassium Chloride 20 meq/ (Dextrose/Sodium Chloride) 1,010 mls @ 50 mls/hr IV .[id number] [facility] Last Admin: 05/23/17 22:15 Dose: 50 mls/hr Morphine Sulfate (Morphine) 2 mg IVP Q4H PRN PRN Reason: Pain, moderate (4-7) Last Admin: 05/23/17 22:17 Dose: 2 mg Ondansetron HCl (Zofran Inj) 4 mg IVP Q6H PRN PRN Reason: Nausea/Vomiting - Labs Labs: 05/23/17 07:45 05/23/17 07:45 PT 11.6 Seconds (9.9-11.8) 05/20/17 11:22 INR 1.07 (0.93-1.08) 05/20/17 11:22 APTT 26.2 Seconds (23.7-30.8) 05/20/17 11:22 - Constitutional Appears: Non-toxic, No Acute Distress - Head Exam Head Exam: NORMAL INSPECTION - ENT Exam ENT Exam: Mucous Membranes Moist - Neck Exam Neck Exam: absent: Meningismus - Respiratory Exam Respiratory Exam: Decreased Breath Sounds - Cardiovascular Exam Cardiovascular Exam: +S1, +S2 - GI/Abdominal Exam GI & Abdominal Exam: Soft. absent: Tenderness Assessment and Plan - Assessment and Plan (Free Text) Plan: Assessment Probable acute gastroenteritis, clinically improving, unlikely exacerbation of Crohn's disease Plan Cultures have been negative, patient does not have diarrhea or vomiting anymore - will continue to monitor off antibiotics
--- NOTE | 2017-05-24 15:21 | PN ---
SUBJECTIVE: He is resting comfortable in bed. He slept well last night. First day, he has less pain, doing better, eat a little bit better, walked okay. He is on dextrose, morphine. He did not take a Pepcid, Tylenol and Zofran he is not taking it, this is the day for him. PHYSICAL EXAMINATION VITAL SIGNS: His temp 90.7 , pulse 55, blood pressure 116/71, respiratory rate 20, sat 97% on room air. HEENT: Head is atraumatic and normocephalic. Throat is moist. NECK: Supple. HEART: Regular rate. LUNGS: Clear to auscultation bilaterally. ABDOMEN: Soft. Decreased bowel sounds, distended, nontender. No guarding. No rebound, no CVA tenderness and no edema. LABORATORY DATA: He was a sodium 142, potassium 4, BUN is 30, creatinine 1.1, GFR is greater than 60, sugar 88, calcium is 9.1, total bilirubin is 0.4, AST is 47, ALT is 60, alkaline phosphatase 42, total protein 7.1, albumin 4. White count 4.9, hemoglobin 14.7, hematocrit 42.7, platelets 176. ASSESSMENT AND PLAN: He is being seen by gastrointestinal and infections diseases. He has off the antibiotics, and going to discharge him on Pepcid. I will give him a few Zofran. Otherwise I think he is improved, he dose brought for launch today, I will discharge him after launch. This is a discharge summary on Elio Leung, who had sever abdominal pain, leucocytosis and history of Crohn's, this is probably at intestinal infection. José Watts DO [facility]
== END 2017-05-24 11:05 | disposition home or self-care (01) | DRG 392 ==
LOC: ED 09:33 → ERH 17:18 → 3RSO 18:12
PROVIDERS: ADMIT Family Medicine; ATTEND Family Medicine
DX: A08.4 Viral intestinal infection, unspecified (principal); R65.10 Systemic inflammatory response syndrome (SIRS) of non-infectious origin without acute organ dysfunction; K50.90 Crohn's disease, unspecified, without complications; M79.1 Myalgia; R00.0 Tachycardia, unspecified; Z88.0 Allergy status to penicillin; Z82.0 Family history of epilepsy and other diseases of the nervous system